=== PATIENT | male | born 1995 | race Caucasian/White ===

== ENCOUNTER 2016-12-12 07:59 | Emergency (ER) | payer SELFPAY ==
[~2016-12-12 07:59] MED LIST: PENICILLIN VK 500 MG TAB PO SCH
--- NOTE | 2016-12-12 08:46 | EDPHY ---
H & P Time Seen by Provider: 12/12/16 08:32 HPI/ROS: CHIEF COMPLAINT: Dental pain, facial swelling HISTORY OF PRESENT ILLNESS: 21-year-old male presents to the emergency department by private vehicle complaining of dental pain and facial swelling that began just today. He denies any known trauma or injury. He has had problems with this same particular to use in the past. He does not have a dentist. He is new to [place]. He tried taking ibuprofen this morning with very little relief. ROS: Denies dysphagia, fevers, chills Past Medical/Surgical History: Negative Social History: Lives in [place] Smoking Status: Never smoked Physical Exam: On examination the patient has some mild right-sided facial swelling. No redness or warmth. No signs of cellulitis. Has fractured tooth 3. There is some diffuse gum swelling consistent with gingivitis, however no other evidence of dental abscess. The other teeth appear to be in good repair. His neck is supple without lymphadenopathy. Nontender to palpate over the right maxillary sinus or over the right frontal sinus. No swelling to the eye. Constitutional: Initial Vital Signs Temperature (C) 36.6 C 12/12/16 08:05 Heart Rate 63 12/12/16 08:05 Respiratory Rate 16 12/12/16 08:05 Blood Pressure 129/74 H 12/12/16 08:05 O2 Sat (%) 97 12/12/16 08:05 O2 Delivery Mode Room Air Allergies/Adverse Reactions: No Known Allergies Allergy (Unverified 12/12/16 08:11) Home Medications: Medication Instructions Recorded Penicillin V Potassium 500 mg PO TID #30 tablet 12/12/16 MDM/Departure - [facility] ED Course/Re-evaluation: 21-year-old male presents to the emergency department with right-sided facial swelling and dental pain. Patient has a fractured to use. He has no evidence of dental abscess. He will be started on penicillin which was filled through [facility] since the patient does not have medical insurance. He understands the importance of taking this medication as directed. Was also encouraged warm salt water gargles. He was also given dental referrals. He understands return to the emergency department sooner if he develops increased facial swelling, fevers or chills, difficulty swallowing, increasing pain or any other concerns. He was comfortable with this plan. I do not think IV antibiotics are indicated. His antibiotics are being filled in the emergency department he will take all 3 doses today. - Depart Disposition: Home, Routine, Self-Care Clinical Impression: Infected dental caries Condition: Good Instructions: Dental Caries (ED), Toothache (ED) Additional Instructions: Penicillin as directed three times daily for 10 days. Warm salt water gargles often Ibuprofen 600 mg every 8 hours as needed for pain. Follow up with a dentist as soon as possible. Return to the emergency department if you developed worsening facial swelling, fever, difficulty swallowing, or if you feel worse in any way. Prescriptions: Penicillin V Potassium 500 mg PO TID #30 tablet Referrals: [facility] [Outside] - As per Instructions [facility] [Outside] - As per Instructions Dental [facility] [Outside] - As per Instructions Dental [facility] [Outside] - As per Instructions Dental [facility] [Outside] - As per Instructions
[2016-12-12 09:16] VITALS: BP 127/68; PULSE 65; RESP 18; TEMP 98.6; O2SAT 96
== END 2016-12-12 09:13 | disposition home or self-care (01) ==
DX: K02.9 Dental caries, unspecified (principal)